=== PATIENT | female | born 1960 | race Caucasian/White ===

== ENCOUNTER 2022-02-19 13:08 | Emergency (ER) | payer BC ==
[2022-02-19 14:37] LABS: #Eosinphils 0.2 10x3/uL (0.0-0.5); #Monocytes 0.3 10x3/uL (0.0-1.1); #Neutrophils 4.3 10x3/uL (1.5-8.4); %Basophils 0.5 % (0.0-2.0); %Eosinophils 3.8 % (0.0-6.0); %Neutrophils 71.7 % (40.0-75.0); Hemoglobin 8.9 g/dL (12.0-15.5); Mean Corpuscular HGB CONC 32.4 g/dL (32.0-36.0); Mean Corpuscular Hemoglobin 28.9 pg (27.0-33.0); Mean Corpuscular Volume 89.3 fl (81.6-98.3); Mean Platelet Volume 9.9 fl (7.4-10.4); Platelet Count 257 10x3/uL (150-450); RBC Distribution Width 17.6 % (11.5-14.5); Red Blood Cell (RBC) Count 3.08 10x6/uL (3.90-5.03)
[2022-02-19 15:00] LABS: ALT (SGPT) 41 U/L (8-55); AST (SGOT) 26 U/L (5-34); Alkaline Phosphatase 104 U/L (40-110); Anion Gap 16 mmol/L (10-20); BUN (Urea Nitrogen) 14 mg/dL (9.8-20.1); Bilirubin, Total 0.7 mg/dL (0.2-1.2); CK (CPK) 38 U/L (29-168); Calc. Creatinine Clearance 0 mL/min (70-130); Calcium 9.7 mg/dL (7.8-10.44); Carbon Dioxide 26 mmol/L (22-29); Chloride 103 mmol/L (98-107); Estimated GFR 87; Globulin 2.5 g/dL (2.4-3.5); Glucose 136 mg/dL (70-105); Potassium 3.8 mmol/L (3.5-5.1); Protein, Total 6.5 g/dL (6.0-8.3); Sodium 141 mmol/L (136-145)
== END 2022-02-19 17:20 | disposition home or self-care (01) ==
LOC: CSHERS 13:08
DX: R06.02 Shortness of breath (principal); I10 Essential (primary) hypertension; E11.9 Type 2 diabetes mellitus without complications; F17.210 Nicotine dependence, cigarettes, uncomplicated
CPT/HCPCS: 71045; 71275; 80053; 82550; 83880; 84443; 84484; 85025; 85379; 93005

== ENCOUNTER 2022-02-26 12:01 | Observation (INO) | payer BC ==
[2022-02-26] MEDS ORDERED: Furosemide 40 MG/4 ML VIAL ONE (12:54)
[2022-02-26 13:09] LABS: #Eosinphils 0.3 10x3/uL (0.0-0.5); #Monocytes 0.3 10x3/uL (0.0-1.1); #Neutrophils 5.4 10x3/uL (1.5-8.4); %Basophils 0.4 % (0.0-2.0); %Eosinophils 4.4 % (0.0-6.0); %Lymphocytes 14.9 % (18.0-47.0); %Monocytes 4.5 % (0.0-10.0); %Neutrophils 75.2 % (40.0-75.0); Hemoglobin 9.7 g/dL (12.0-15.5); Mean Corpuscular HGB CONC 32.6 g/dL (32.0-36.0); Mean Corpuscular Hemoglobin 29.5 pg (27.0-33.0); Mean Corpuscular Volume 90.6 fl (81.6-98.3); Mean Platelet Volume 10.2 fl (7.4-10.4); Platelet Count 278 10x3/uL (150-450); RBC Distribution Width 17.8 % (11.5-14.5); Red Blood Cell (RBC) Count 3.29 10x6/uL (3.90-5.03); White Blood Cell (WBC) Count 7.1 10x3/uL (3.5-10.5)
[2022-02-26 13:23] LABS: ALT (SGPT) 35 U/L (8-55); AST (SGOT) 31 U/L (5-34); Albumin 4.3 g/dL (3.5-5.0); Alkaline Phosphatase 108 U/L (40-110); Anion Gap 17 mmol/L (10-20); BUN (Urea Nitrogen) 16 mg/dL (9.8-20.1); Bilirubin, Total 0.8 mg/dL (0.2-1.2); Calc. Creatinine Clearance 0 mL/min (70-130); Calcium 10.1 mg/dL (7.8-10.44); Carbon Dioxide 28 mmol/L (22-29); Chloride 99 mmol/L (98-107); Estimated GFR 71; Globulin 2.7 g/dL (2.4-3.5); Glucose 177 mg/dL (70-105); Potassium 3.9 mmol/L (3.5-5.1); Sodium 140 mmol/L (136-145)
[2022-02-26 17:07] LABS: SARS-CoV-2 NAA Rapid Test Not Detected (NotDetected)
[2022-02-26] MEDS ORDERED: Ondansetron PF 4 MG/2 ML Vial IVP PRN (17:45)
[2022-02-26] MEDS ORDERED: Guaifenesin DM 100-10/5 ML UDCUP PO PRN (17:45)
[2022-02-26] MEDS ORDERED: Acetaminophen 325 MG TAB PO PRN (17:45)
[2022-02-26] MEDS ORDERED: Dextrose 5% in Water 1,000 ML IV PRN (17:45)
[2022-02-26] MEDS ORDERED: Ondansetron ODT 4 MG TAB PO PRN (17:45)
[2022-02-26] MEDS ORDERED: Acetaminophen 650 MG Suppository PR PRN (17:45)
[2022-02-26] MEDS ORDERED: Dextrose 50% Abboject 50 ML SYRINGE SLOW IVP PRN (17:45)
[2022-02-26] MEDS ORDERED: hydrALAZINE 20 MG/ML VIAL SLOW IVP PRN (17:51)
[2022-02-26 18:18] VITALS: BMI 47.1
[2022-02-26] MEDS ORDERED: Furosemide 40 MG/4 ML VIAL SLOW IVP SCH (20:00)
[2022-02-26] MEDS ORDERED: Famotidine/PF 20 mg/2ml Vial SLOW IVP PRN (21:00)
[2022-02-26] MEDS: Famotidine 20 MG TAB PO SCH (21:14)
[2022-02-26] MEDS: HumaLOG 300 UNITS/3 ML VIAL SC PRN (21:19)
[2022-02-26] MEDS ORDERED: rOPINIRole HCl 2 MG TAB PO SCH (22:15)
[2022-02-27] MEDS ORDERED: Melatonin 3 MG TAB PO PRN (01:25)
[2022-02-27] MEDS ORDERED: HYDROcodone/Acetaminophen 5/325 mg Tablet PO PRN (01:25)
[2022-02-27] MEDS: HYDROcodone/Acetaminophen 5/325 mg Tablet PO PRN ×2 (01:36→05:58)
[2022-02-27 04:27] LABS: Magnesium 1.7 mg/dL (1.6-2.6)
[2022-02-27 04:32] LABS: #Eosinphils 0.3 10x3/uL (0.0-0.5); #Monocytes 0.5 10x3/uL (0.0-1.1); #Neutrophils 5.2 10x3/uL (1.5-8.4); %Basophils 0.5 % (0.0-2.0); %Eosinophils 4.6 % (0.0-6.0); %Lymphocytes 17.9 % (18.0-47.0); %Monocytes 6.8 % (0.0-10.0); %Neutrophils 69.4 % (40.0-75.0); Hemoglobin 9.3 g/dL (12.0-15.5); Mean Corpuscular HGB CONC 32.6 g/dL (32.0-36.0); Mean Corpuscular Volume 88.8 fl (81.6-98.3); Mean Platelet Volume 10.3 fl (7.4-10.4); Platelet Count 270 10x3/uL (150-450); RBC Distribution Width 18.1 % (11.5-14.5); Red Blood Cell (RBC) Count 3.21 10x6/uL (3.90-5.03); White Blood Cell (WBC) Count 7.5 10x3/uL (3.5-10.5)
[2022-02-27] MEDS: Furosemide 40 MG/4 ML VIAL SLOW IVP SCH ×2 (05:40→15:11)
[2022-02-27] MEDS: HumaLOG 300 UNITS/3 ML VIAL SC PRN ×4 (06:01→22:00)
[2022-02-27] MEDS: Enoxaparin Sodium 40 MG/0.4 ML SYRINGE SC SCH (09:18)
[2022-02-27] MEDS: Famotidine 20 MG TAB PO SCH ×2 (09:18→21:24)
[2022-02-27] MEDS ORDERED: rOPINIRole HCl 1 MG TAB PO SCH (11:00)
[2022-02-27] MEDS ORDERED: rOPINIRole HCl 1 MG TAB PO PRN (15:44)
[2022-02-27] MEDS ORDERED: Aspirin 81 mg Enteric Coated Tablet PO SCH (21:00)
[2022-02-27] MEDS ORDERED: Atorvastatin Calcium 10 MG TAB PO SCH (21:00)
[2022-02-27] MEDS ORDERED: rOPINIRole HCl 2 MG TAB PO SCH (21:00)
[2022-02-27] MEDS ORDERED: Losartan 25 MG TAB PO SCH (21:00)
[2022-02-27] MEDS: Metoprolol Tartrate 25 MG TAB PO SCH (21:25)
[2022-02-28] MEDS ORDERED: HYDROcodone/Acetaminophen 5/325 mg Tablet PO SCH (02:45)
[2022-02-28 05:19] LABS: Anion Gap 15 mmol/L (10-20); BUN (Urea Nitrogen) 15 mg/dL (9.8-20.1); Calc. Creatinine Clearance 115 mL/min (70-130); Calcium 9.7 mg/dL (7.8-10.44); Carbon Dioxide 29 mmol/L (22-29); Chloride 97 mmol/L (98-107); Estimated GFR 73; Glucose 267 mg/dL (70-105); Magnesium 1.8 mg/dL (1.6-2.6); Sodium 137 mmol/L (136-145)
[2022-02-28] MEDS: Furosemide 40 MG/4 ML VIAL SLOW IVP SCH (06:45)
[2022-02-28] MEDS: HumaLOG 300 UNITS/3 ML VIAL SC PRN (06:50)
[2022-02-28] MEDS: Enoxaparin Sodium 40 MG/0.4 ML SYRINGE SC SCH (08:37)
[2022-02-28] MEDS: Famotidine 20 MG TAB PO SCH (08:37)
[2022-02-28] MEDS: Metoprolol Tartrate 25 MG TAB PO SCH (08:37)
[2022-02-28] MEDS ORDERED: Glimepiride 4 MG TAB PO SCH (09:00)
[2022-02-28] MEDS ORDERED: rOPINIRole HCl 1 MG TAB PO SCH (09:00)
[2022-02-28 11:59] LABS: Hemoglobin A1c 7.5 % (4.0-6.0)
[2022-02-28 12:13] VITALS: BP 125/62; TEMP 97.8
[2022-02-28] MEDS ORDERED: Furosemide 20 MG TAB PO SCH (14:00)
== END 2022-02-28 12:38 | disposition home or self-care (01) ==
LOC: CSHERS 12:01 → CSHTELE 16:26
PROVIDERS: ADMIT Nurse Practitioner Acute Care; ATTEND Nurse Practitioner Acute Care
DX: R06.09 Other forms of dyspnea (principal); R00.0 Tachycardia, unspecified; R79.89 Other specified abnormal findings of blood chemistry; E11.9 Type 2 diabetes mellitus without complications; I10 Essential (primary) hypertension; G25.81 Restless legs syndrome; K21.9 Gastro-esophageal reflux disease without esophagitis; E78.5 Hyperlipidemia, unspecified; R42 Dizziness and giddiness; F17.290 Nicotine dependence, other tobacco product, uncomplicated; K76.0 Fatty (change of) liver, not elsewhere classified; R60.0 Localized edema; G47.30 Sleep apnea, unspecified; G40.909 Epilepsy, unspecified, not intractable, without status epilepticus; M25.572 Pain in left ankle and joints of left foot; E66.01 Morbid (severe) obesity due to excess calories; Z68.42 Body mass index [BMI] 45.0-49.9, adult; Z85.42 Personal history of malignant neoplasm of other parts of uterus; Z79.4 Long term (current) use of insulin; Z79.82 Long term (current) use of aspirin; Z79.84 Long term (current) use of oral hypoglycemic drugs; Z79.899 Other long term (current) drug therapy; Z20.822 Contact with and (suspected) exposure to COVID-19
CPT/HCPCS: 36415; 36416; 71045; 71275; 80048; 80053; 83036; 83735; 83880; 84484; 85025; 85379; 93005; 93306; 93880; 94760; 96372; 96374; 96376; G0378; J1650; J1815; J1940

== ENCOUNTER 2022-04-27 19:23 | Observation (INO) | payer BC ==
[~2022-04-27 19:23] MED LIST: Iopamidol 370 76% 100 ML VIAL ONE
[2022-04-27 20:34] LABS: #Eosinphils 0.2 10x3/uL (0.0-0.5); #Monocytes 0.4 10x3/uL (0.0-1.1); #Neutrophils 6.3 10x3/uL (1.5-8.4); %Basophils 0.4 % (0.0-2.0); %Lymphocytes 14.9 % (18.0-47.0); %Monocytes 4.9 % (0.0-10.0); %Neutrophils 77.3 % (40.0-75.0); Hemoglobin 10.4 g/dL (12.0-15.5); Mean Corpuscular Hemoglobin 28.3 pg (27.0-33.0); Mean Corpuscular Volume 88.6 fl (81.6-98.3); Platelet Count 234 10x3/uL (150-450); Red Blood Cell (RBC) Count 3.67 10x6/uL (3.90-5.03); White Blood Cell (WBC) Count 8.1 10x3/uL (3.5-10.5)
[2022-04-27 20:45] LABS: ALT (SGPT) 26 U/L (8-55); AST (SGOT) 21 U/L (5-34); Albumin 4.4 g/dL (3.5-5.0); Alkaline Phosphatase 105 U/L (40-110); Anion Gap 19 mmol/L (10-20); BUN (Urea Nitrogen) 16 mg/dL (9.8-20.1); Bilirubin, Total 0.6 mg/dL (0.2-1.2); Calc. Creatinine Clearance 0 mL/min (70-130); Carbon Dioxide 23 mmol/L (22-29); Chloride 102 mmol/L (98-107); Estimated GFR 63; Globulin 2.5 g/dL (2.4-3.5); Glucose 177 mg/dL (70-105); Protein, Total 6.9 g/dL (6.0-8.3); Sodium 140 mmol/L (136-145)
[2022-04-27] MEDS ORDERED: Lorazepam 2 MG/ML VIAL ONE (20:48)
[2022-04-27] MEDS ORDERED: Midazolam HCl 2 mg/2 ml Vial ONE (20:59)
[2022-04-27] MEDS ORDERED: levETIRAcetam in NS 100 ML ONE (21:00)
[2022-04-27] MEDS ORDERED: rOPINIRole HCl 2 MG TAB PO SCH (23:45)
[2022-04-27] MEDS ORDERED: Acetaminophen 325 MG TAB PO PRN (23:57)
[2022-04-27] MEDS ORDERED: Ondansetron PF 4 MG/2 ML Vial IVP PRN (23:57)
[2022-04-27 23:58] LABS: Acetaminophen Less than 10.0 mcg/mL (10.0-30.0); Alcohol Less than 10 mg/dL (Less than 10); Salicylate Less than 8.0 mg/dL (15.0-30.0)
[2022-04-28] MEDS ORDERED: Dextrose 5% in Water 1,000 ML IV PRN (00:04)
[2022-04-28] MEDS ORDERED: Dextrose 50% Abboject 50 ML SYRINGE SLOW IVP PRN (00:04)
[2022-04-28] MEDS ORDERED: HumaLOG 300 UNITS/3 ML VIAL SC PRN (00:04)
[2022-04-28 01:06] LABS: Lactic Acid 2.6 mmol/L (0.5-2.2)
[2022-04-28 01:16] LABS: Troponin I Less than 0.010 ng/mL (< 0.028)
[2022-04-28] MEDS ORDERED: Melatonin 3 MG TAB PO SCH ×2 (01:45)
[2022-04-28 02:41] LABS: SARS-CoV-2 NAA Rapid Test Not Detected (NotDetected)
[2022-04-28 03:33] LABS: #Eosinphils 0.2 10x3/uL (0.0-0.5); #Monocytes 0.4 10x3/uL (0.0-1.1); #Neutrophils 4.9 10x3/uL (1.5-8.4); %Basophils 0.6 % (0.0-2.0); %Eosinophils 2.9 % (0.0-6.0); %Lymphocytes 17.8 % (18.0-47.0); %Monocytes 6.2 % (0.0-10.0); %Neutrophils 72.1 % (40.0-75.0); Mean Corpuscular HGB CONC 31.7 g/dL (32.0-36.0); Mean Corpuscular Hemoglobin 28.4 pg (27.0-33.0); Mean Corpuscular Volume 89.6 fl (81.6-98.3); Mean Platelet Volume 10.2 fl (7.4-10.4); Platelet Count 188 10x3/uL (150-450); RBC Distribution Width 18.2 % (11.5-14.5); Red Blood Cell (RBC) Count 3.17 10x6/uL (3.90-5.03); White Blood Cell (WBC) Count 6.8 10x3/uL (3.5-10.5)
[2022-04-28 03:45] LABS: Lactic Acid 1.6 mmol/L (0.5-2.2)
[2022-04-28 03:48] LABS: Anion Gap 15 mmol/L (10-20); BUN (Urea Nitrogen) 14 mg/dL (9.8-20.1); Calc. Creatinine Clearance 0 mL/min (70-130); Calcium 9.3 mg/dL (7.8-10.44); Carbon Dioxide 25 mmol/L (22-29); Chloride 105 mmol/L (98-107); Estimated GFR 78; Glucose 140 mg/dL (70-105); Magnesium 1.5 mg/dL (1.6-2.6); Potassium 3.8 mmol/L (3.5-5.1); Sodium 141 mmol/L (136-145)
[2022-04-28 03:55] LABS: Troponin I Less than 0.010 ng/mL (< 0.028)
[2022-04-28] MEDS ORDERED: Magnesium Sulfate 2 GM in Sodium Chloride 0.9% 100 ML IVPB SCH (06:30)
[2022-04-28] MEDS ORDERED: Magnesium 2 GM/50 ML(in water) 2 GM in Premix Bag 1 BAG IVPB SCH (07:30)
[2022-04-28] MEDS ORDERED: Metoprolol Tartrate 25 MG TAB ONE (07:45)
[2022-04-28] MEDS ORDERED: Furosemide 40 MG TAB ONE (07:45)
[2022-04-28] MEDS ORDERED: Magnesium 2 GM/50 ML BAG (IN WATER) ONE (07:46)
[2022-04-28 08:24] LABS: Bilirubin Negative (Negative); Blood, Urine Negative (Negative); Clarity Clear (Clear); Glucose, Urine (Dipstick) Negative (Negative); Ketone, Urine Negative (Negative); Leukocyte Small (Negative); Nitrite Negative (Negative); Protein, Urine (Dipstick) Negative (Neg-Trace); pH, Urine 6.5 (5.0-9.0)
[2022-04-28] MEDS: Metoprolol Tartrate 25 MG TAB PO SCH ×2 (08:39→21:29)
[2022-04-28] MEDS: Furosemide 40 MG TAB PO SCH ×2 (08:39→14:32)
[2022-04-28 08:40] LABS: Bacteria/HPF None Seen HPF (None Seen); RBC/HPF 0-3 HPF (0-3); Squamous Epithelial 0-3 HPF (0-3); WBC/HPF 0-3 HPF (0-3)
[2022-04-28 14:30] VITALS: BMI 48.4
[2022-04-28] MEDS: HumaLOG 300 UNITS/3 ML VIAL SC PRN (18:17)
[2022-04-28 18:40] LABS: Bilirubin Negative (Negative); Blood, Urine Negative (Negative); Clarity Clear (Clear); Glucose, Urine (Dipstick) 100 mg/dL (Negative); Ketone, Urine Negative (Negative); Leukocyte Negative (Negative); Nitrite Negative (Negative); Protein, Urine (Dipstick) Negative (Neg-Trace); Urobilinogen 0.2 mg/dL (Less than 2)
[2022-04-28 18:44] LABS: Urine Culture Reflex No No
[2022-04-28 18:52] LABS: Bacteria/HPF Rare-Few HPF (None Seen); RBC/HPF None Seen HPF (0-3); Squamous Epithelial 0-3 HPF (0-3); WBC/HPF 0-3 HPF (0-3)
[2022-04-28] MEDS ORDERED: rOPINIRole HCl 1 MG TAB PO PRN (20:05)
[2022-04-28] MEDS ORDERED: rOPINIRole HCl 2 MG TAB PO SCH (21:00)
[2022-04-28] MEDS ORDERED: Aspirin 81 mg Enteric Coated Tablet PO SCH (21:00)
[2022-04-28] MEDS ORDERED: Atorvastatin Calcium 10 MG TAB PO SCH (21:00)
[2022-04-28] MEDS: levETIRAcetam 500 MG TAB PO SCH (21:28)
[2022-04-28] MEDS ORDERED: Electrolyte Replacement Protocol FS SCH (22:30)
[2022-04-29 05:15] LABS: Anion Gap 15 mmol/L (10-20); BUN (Urea Nitrogen) 13 mg/dL (9.8-20.1); Calc. Creatinine Clearance 125 mL/min (70-130); Calcium 9.4 mg/dL (7.8-10.44); Carbon Dioxide 27 mmol/L (22-29); Chloride 102 mmol/L (98-107); Estimated GFR 78; Glucose 166 mg/dL (70-105); Magnesium 1.9 mg/dL (1.6-2.6); Potassium 3.9 mmol/L (3.5-5.1); Sodium 140 mmol/L (136-145)
[2022-04-29 05:22] LABS: #Eosinphils 0.2 10x3/uL (0.0-0.5); #Monocytes 0.4 10x3/uL (0.0-1.1); #Neutrophils 4.9 10x3/uL (1.5-8.4); %Basophils 0.4 % (0.0-2.0); %Eosinophils 3.3 % (0.0-6.0); %Lymphocytes 18.8 % (18.0-47.0); %Monocytes 6.1 % (0.0-10.0); %Neutrophils 71.1 % (40.0-75.0); Hemoglobin 9.5 g/dL (12.0-15.5); Mean Corpuscular HGB CONC 32.5 g/dL (32.0-36.0); Mean Corpuscular Hemoglobin 28.4 pg (27.0-33.0); Mean Corpuscular Volume 87.4 fl (81.6-98.3); Mean Platelet Volume 9.9 fl (7.4-10.4); Platelet Count 194 10x3/uL (150-450); RBC Distribution Width 18.4 % (11.5-14.5); Red Blood Cell (RBC) Count 3.34 10x6/uL (3.90-5.03); White Blood Cell (WBC) Count 6.9 10x3/uL (3.5-10.5)
[2022-04-29] MEDS: HumaLOG 300 UNITS/3 ML VIAL SC PRN ×2 (05:48→12:02)
[2022-04-29] MEDS ORDERED: Magnesium 2 GM/50 ML(in water) 2 GM in Premix Bag 1 BAG IVPB SCH (06:00)
[2022-04-29] MEDS ORDERED: metFORMIN 500 MG TAB PO SCH (08:00)
[2022-04-29] MEDS ORDERED: Glimepiride 4 MG TAB PO SCH (08:00)
[2022-04-29] MEDS: Furosemide 40 MG TAB PO SCH (08:55)
[2022-04-29] MEDS: Metoprolol Tartrate 25 MG TAB PO SCH (08:55)
[2022-04-29] MEDS: levETIRAcetam 500 MG TAB PO SCH (08:55)
[2022-04-29] MEDS ORDERED: Potassium Chloride 20 MEQ TAB PO SCH (09:00)
[2022-04-29] MEDS ORDERED: DULoxetine 30 MG CAP PO SCH (09:00)
[2022-04-29] MEDS ORDERED: Bumetanide 1 MG TAB PO SCH (09:00)
[2022-04-29 16:46] VITALS: BP 139/75; TEMP 98.7
== END 2022-04-29 16:58 | disposition home or self-care (01) ==
LOC: CSHERS 19:23 → INTOOBSV 22:52 → CSHERHOLD 22:52 → UNDOADMIN 04-28 00:36 → CSHERHOLD 04-28 00:36 → CSHTELE 04-28 13:54
PROVIDERS: ADMIT Internal Medicine; ATTEND Internal Medicine
DX: R56.9 Unspecified convulsions (principal); E87.2 Acidosis; R19.7 Diarrhea, unspecified; R41.82 Altered mental status, unspecified; R06.02 Shortness of breath; R42 Dizziness and giddiness; R00.0 Tachycardia, unspecified; I13.0 Hypertensive heart and chronic kidney disease with heart failure and stage 1 through stage 4 chronic kidney disease, or unspecified chronic kidney disease; I50.32 Chronic diastolic (congestive) heart failure; E11.22 Type 2 diabetes mellitus with diabetic chronic kidney disease; N18.2 Chronic kidney disease, stage 2 (mild); D63.1 Anemia in chronic kidney disease; G25.81 Restless legs syndrome; E83.42 Hypomagnesemia; G47.33 Obstructive sleep apnea (adult) (pediatric); K21.9 Gastro-esophageal reflux disease without esophagitis; F41.9 Anxiety disorder, unspecified; E66.9 Obesity, unspecified; Z68.42 Body mass index [BMI] 45.0-49.9, adult; Z20.822 Contact with and (suspected) exposure to COVID-19; Z86.73 Personal history of transient ischemic attack (TIA), and cerebral infarction without residual deficits; Z79.82 Long term (current) use of aspirin; Z79.4 Long term (current) use of insulin; Z79.899 Other long term (current) drug therapy; Z87.891 Personal history of nicotine dependence; Z90.710 Acquired absence of both cervix and uterus
CPT/HCPCS: 36415; 36416; 70450; 70551; 71275; 80048; 80053; 80307; 81003; 81015; 83605; 83735; 83880; 84146; 84484; 85025; 87040; 93005; 94660; 94760; 95816; 95819; 95957; 96374; 96375; 96376; G0378; J1815; J1953; J2060; J2250; J3475; Q9967; U0002

== ENCOUNTER 2022-11-18 13:47 | Outpatient (CLI) | payer BC | END 2022-11-18 13:48 | disposition home or self-care (01) | LOC: CSHRAD 13:47 | PROVIDERS: ATTEND Family Medicine | DX: R05.9 Cough, unspecified (principal) | CPT/HCPCS: 71046 ==